=== PATIENT | male | born 1980 | race Caucasian/White ===

== ENCOUNTER 2022-09-13 18:54 | Emergency (ER) | payer OTHER, SELFPAY ==
--- NOTE | ~2022-09-13 | CT_ITS ---
CT of the Abdomen and Pelvis: Indication: Abdominal pain Technique: 2.5 mm axial scans were obtained through the abdomen and pelvis following intravenous adm inistration of 100 cc of Omnipaque 350. Dose reduction technique was used on this scan by utilizing a utomated exposure control and iterative reconstruction technique. The dose-length product (DLP) was 3 84.25 mGy-cm. Findings: Scans through the lung bases are unremarkable. The liver, spleen, pancreas, gallbladder, adrenals and kidneys are within normal limits. No evidence of aortic aneurysm. No lymphadenopathy. No bowel obstruction or bowel wall thickening. There is no evidence to suggest acute appendicitis. Images through the pelvis were performed. Urinary bladder unremarkable. Prostate gland and seminal ve sicles are unremarkable. No ascites. Impression: No significant abnormalities seen. Reviewed, dictated and finalized at [facility]. Impression: No significant abnormalities seen.
[2022-09-13 18:59] VITALS: BP 134/106; PULSE 77; RESP 18; TEMP 36.9; O2SAT 98
--- NOTE | 2022-09-13 20:34 | ED.GENADULT ---
HPI - General Adult General Chief complaint: Nausea/Vomiting/Diarrhea Stated complaint: I don't feel good , bloody stools Time Seen by Provider: 09/13/22 19:56 History of Present Illness HPI narrative: Patient is a 42-year-old gentleman who presents the emergency department with chief complaint of rectal bleeding. The patient reports that he drank a lot last night and then this morning woke up was feeling hung over and reports that he had black stool patient states he had several other episodes of this throughout the day and then had bright red blood in the toilet whenever he went to the bathroom. Patient reports that his abdomen feels uncomfortable but reports no true localizing pain patient reports he had some nausea but has not had vomiting and has not had any vomiting of blood. Related Data Allergies Allergy/AdvReac Type Severity Reaction Status Date / Time No Known Allergies Allergy Verified 09/13/22 20:44 Review of Systems Review of Systems: A 10 system review of systems was completed on the patient and is negative except for what is stated in the HPI. Nursing and ancillary documentation was reviewed. Exam Narrative: GENERAL: Well-appearing, well-nourished, and in no acute distress. HEAD: Normocephalic, atraumatic. EYES: PERRLA and EOMI. ENT: Nares clear, no rhinorrhea or epistaxis. Mucous membranes moist. NECK: Supple. CHEST: Clear to auscultation. No respiratory distress. HEART: Regular rate and rhythm. No murmur heard. Normal peripheral pulses. ABDOMEN: Soft, mild tenderness to palpation diffusely, nondistended, normal active bowel sounds. : Stool is normal color trace guaiac positive EXTREMITIES: Normal range of motion. No edema. SKIN: Warm, dry, no rash. NEURO: No focal deficits. Alert and oriented x3. PSYCH: Normal mood and affect. Course Vital Signs Vital signs: Vital Signs Temperature 36.9 C 09/13/22 18:59 Pulse Rate 77 09/13/22 18:59 Respiratory Rate 18 09/13/22 18:59 Blood Pressure 134/106 H 09/13/22 18:59 Pulse Oximetry 98 09/13/22 18:59 Oxygen Delivery Room Air 09/13/22 18:59 Temperature 36.9 C 09/13/22 20:43 Pulse Rate 60 09/13/22 21:57 Respiratory Rate 14 09/13/22 21:57 Blood Pressure 113/80 09/13/22 21:57 Pulse Oximetry 99 09/13/22 21:57 Oxygen Delivery Room Air 09/13/22 18:59 Medical Decision Making [facility] Narrative Medical decision making narrative: Differential diagnosis includes gastritis, lower GI bleed, After studies were obtained on the patient which showed hemoglobin of 15.6 white count 7.9 electrolytes are within normal limits urinalysis showed no acute abnormality CT scan of the abdomen pelvis showed no acute findings Given the patient is currently hemodynamically stable with a hemoglobin of 15.6 the patient can be safely discharged home with outpatient follow-up. Patient be discharged home to follow-up with primary care may need referral to gastroenterology the patient will be started on Protonix Vital Signs Vital Signs: Vital Signs Temperature 36.9 C 09/13/22 18:59 Pulse Rate 77 09/13/22 18:59 Respiratory Rate 18 09/13/22 18:59 Blood Pressure 134/106 H 09/13/22 18:59 Pulse Oximetry 98 09/13/22 18:59 Oxygen Delivery Room Air 09/13/22 18:59 Temperature 36.9 C 09/13/22 20:43 Pulse Rate 60 09/13/22 21:57 Respiratory Rate 14 09/13/22 21:57 Blood Pressure 113/80 09/13/22 21:57 Pulse Oximetry 99 09/13/22 21:57 Oxygen Delivery Room Air 09/13/22 18:59 Lab Data 09/13/22 20:56 09/13/22 20:56 Labs: Lab Results 09/13/22 Range/Units 20:56 WBC 7.9 (4.5-10.0) K/mm3 RBC 5.01 (4.6-6.20) M/mm3 Hgb 15.6 (14.0-18.0) g/dL Hct 45.9 (42.0-52.0) % MCV 91.6 (80-100) fl MCH 31.1 (26-34) pg MCHC 34.0 (32-36) g/dl RDW 12.8 (11.5-14.5) % Plt Count 258 (150-375) k/mm3 MPV 9.2 (7.4-10.4) fl Immature Gran % (Auto) 0.3
[2022-09-13 20:43] VITALS: BP 134/87; PULSE 65; RESP 12; TEMP 36.9; O2SAT 99
[2022-09-13 21:03] LABS: Basophils Absolute Auto 0.1 K/mm3 (0.0-0.1); Basophils Percent Auto 1.1 % (0.2-1.2); Eosinophils Absolute Auto 0.4 K/mm3 (0-0.3); Eosinophils Percent Auto 5.5 % (0-4.4); Hematocrit 45.9 % (42.0-52.0); Hemoglobin 15.6 g/dL (14.0-18.0); Immature Granulocyte Absolute 0.02 K/mm3 (0.00-0.031); Immature Granulocyte Percent A 0.3 % (0-0.5); Lymphocytes Absolute Auto 1.73 K/mm3 (0.9-3.2); Mean Corpuscular Hemoglobin 31.1 pg (26-34); Mean Corpuscular Volume 91.6 fl (80-100); Mean Platelet Volume 9.2 fl (7.4-10.4); Monocytes Absolute Auto 0.7 K/mm3 (0.1-0.6); Monocytes Percent Auto 8.9 % (2.6-8.5); Neutrophils Absolute Auto 4.9 K/mm3 (1.3-6.7); Neutrophils Percent Auto 62.2 % (45.5-73.1); Platelet Count Result 258 k/mm3 (150-375); Red Blood Count 5.01 M/mm3 (4.6-6.20); Red Cell Distribution Width 12.8 % (11.5-14.5); White Blood Count 7.9 K/mm3 (4.5-10.0)
[2022-09-13] MEDS: SODIUM CHLORIDE 0.9% IV 1,000 ML 999 ML IV CONT (21:04)
[2022-09-13 21:05] LABS: Appearance Urine Clear (Clear); Bilirubin Urine Negative (Negative); Blood Urine Negative (Negative); Color Urine Dark Yellow (Yellow); Glucose Urine UA Negative (Negative); Ketones Urine Negative (Negative); Leukocyte Esterase Ur Negative LEU/UL (Negative); Nitrate Urine Negative (Negative); Protein Urine Negative (Negative); Urobilinogen Urine 0.2 mg/dL (<2.0)
[2022-09-13 21:07] LABS: Add Urine Microscopic? NO
[2022-09-13] MEDS: PANTOPRAZOLE SODIUM IV 40 MG VIAL IV PUSH (21:07)
[2022-09-13] MEDS: ONDANSETRON INJ 4 MG/2 ML VIAL IV PUSH (21:07)
[2022-09-13 21:12] LABS: Alanine Aminotransferase 34 U/L (6-50); Albumin Level 4.7 g/dL (3.5-5.1); Alkaline Phosphatase 70 U/L (38-126); Anion Gap 7 mmol/L (8-16); Aspartate Amino Transferase 31 U/L (17-59); Bilirubin,Total 0.5 mg/dL (0.2-1.3); Blood Urea Nitrogen 13 mg/dL (9-20); Calcium 8.6 mg/dL (8.4-10.2); Carbon Dioxide 30 mmol/L (22-30); Chloride 101 mmol/L (98-107); Estimated CRCL calculation 122 ml/min; Estimated Glomerular Filt Rate > 60; Glucose 97 mg/dL (65-110); Lipase 85 U/L (23-300); Potassium 4.4 mmol/L (3.4-5.0); Sodium 138 mmol/L (137-145)
[2022-09-13 21:16] LABS: INR 0.9; Prothrombin Time 12.1 Seconds (11.1-14.7)
[2022-09-13 21:17] LABS: Partial Thromboplastin Time 27.7 SECONDS (22.3-36.8)
[2022-09-13 21:57] VITALS: BP 113/80; PULSE 60; RESP 14; O2SAT 99
[2022-09-13 23:15] VITALS: BP 116/95; PULSE 64; RESP 14; TEMP 36.9; O2SAT 98
== END 2022-09-13 23:17 | disposition home or self-care (01) ==
PROVIDERS: Emergency Provider Emergency Medicine; PCP Emergency Medicine
DX: K52.9 Noninfective gastroenteritis and colitis, unspecified (principal)
CPT/HCPCS: 36415; 74177; 80053; 81003; 83690; 83735; 85025; 85610; 85730; 96361; 96374; 96375; 99284; C9113; J2405; J7030; Q9967